=== PATIENT | female | born 1995 | race Caucasian/White ===

== ENCOUNTER 2019-04-24 07:54 | Emergency (ER) | payer BC ==
--- NOTE | 2019-04-24 08:00 | UC ---
UC General HPI - HPI Summary HPI Summary: Urinary frequency and urgency x 2 days. Some lower pelvic discomfort with urination. No fever /chills. No back / flank pain. No GI issues. No rash. - History of Current Complaint Stated Complaint: URINARY ISSUE Time Seen by Provider: 04/24/19 07:59 Hx Obtained From: Patient - Allergy/Home Medications Allergies/Adverse Reactions: Allergies Allergy/AdvReac Type Severity Reaction Status Date / Time No Known Allergies Allergy Verified 04/24/19 08:11 PMH/Surg Hx/FS Hx/Imm Hx Previously Healthy: Yes - Surgical History Surgical History: Yes Surgery Procedure, Year, and Place: Molar extraction 08/2015 - Family History Known Family History: Positive: Non-Contributory - Social History Occupation: Student Alcohol Use: None Substance Use Type: None Smoking Status (MU): Never Smoked Tobacco Have You Smoked in the Last Year: No Review of Systems All Other Systems Reviewed And Are Negative: Yes Constitutional: Positive: Negative Skin: Positive: Negative Eyes: Positive: Negative ENT: Positive: Negative Respiratory: Positive: Negative Cardiovascular: Positive: Negative Gastrointestinal: Positive: Negative Genitourinary: Positive: Other - see hpi Motor: Positive: Negative Neurovascular: Positive: Negative Musculoskeletal: Positive: Arthralgia Neurological: Positive: Negative Psychological: Positive: Negative Is Patient Immunocompromised?: No Physical Exam Triage Information Reviewed: Yes Appearance: Well-Appearing, Well-Nourished Vital Signs Reviewed: Yes Eye Exam: Normal - grossly nad ENT Exam: Normal - grossly nad Neck exam: Normal Respiratory Exam: Normal Respiratory: Positive: Lungs clear, Normal breath sounds, No respiratory distress Cardiovascular Exam: Normal Cardiovascular: Positive: RRR, Brisk Capillary Refill Abdominal Exam: Normal Abdomen Description: Positive: Nontender - no cvat Musculoskeletal Exam: Normal - moves x 4 ext's Neurological Exam: Normal - grossly nonfocal Psychological Exam: Normal - conversing easily and appropriately Course/Dx - Course Course Of Treatment: Reviewed coa / tx plan. Questions as posed answered to the best of my ability. - Diagnoses Provider Diagnosis: UTI (urinary tract infection) Discharge ED - Sign-Out/Discharge Documenting (check all that apply): Patient Departure All imaging exams completed and their final reports reviewed: No Studies - Discharge Plan Condition: Stable Disposition: HOME Patient Education Materials: Urinary Tract Infection in Women (ED), Hematuria ( ED) Referrals: No Primary Care Phys,NOPCP [Primary Care Provider] - [facility] [Outside] Additional Instructions: Hydrate. Use back up method during menstrual cycle(s) during which you are taking antibiotics. Yogurt and / or probiotic every day, and for one week after antibiotic. Seek medical attention for worse or new problems. Trace blood in urine dip - recheck urine by primary care provider - when symptoms gone and not on menstrual cycle. - Billing Disposition and Condition Condition: STABLE Disposition: Home
[2019-04-24 08:11] VITALS: BP 127/86
== END 2019-04-24 09:06 | disposition home or self-care (01) ==
LOC: UCEAST 07:54
DX: N39.0 Urinary tract infection, site not specified (principal)
CPT/HCPCS: 81003; 84702; 87077; 87086; 87186; 99212; G0463

== ENCOUNTER 2019-05-03 16:04 | Emergency (ER) | payer BC ==
[2019-05-03 16:45] VITALS: BP 114/76
--- NOTE | 2019-05-03 17:00 | UC ---
Complaint Female HPI - HPI Summary HPI Summary: was treated one week ago for UTI, finished course augmentin and felt better or 2 days until today when symptoms of painful urination and frequency returned - History Of Current Complaint Chief Complaint: UCGU Stated Complaint: BURNING URINATION Time Seen by Provider: 05/03/19 16:57 Hx Obtained From: Patient Hx Last Menstrual Period: february - takes continuous control ?: No Onset/Duration: Sudden Onset Timing: Intermittent Severity Initially: Mild Severity Currently: Mild Pain Intensity: 3 Aggravating Factor(s): Urination Alleviating Factor(s): Nothing Associated Signs And Symptoms: Positive: Negative. Negative: Fever, Back Pain, Vaginal Bleeding/Discharge, Nausea - Allergies/Home Medications Allergies/Adverse Reactions: Allergies Allergy/AdvReac Type Severity Reaction Status Date / Time No Known Allergies Allergy Verified 05/03/19 16:46 PMH/Surg Hx/FS Hx/Imm Hx Previously Healthy: Yes Neurological History: Migraine - Surgical History Surgical History: Yes Surgery Procedure, Year, and Place: Molar extraction 08/2015 - Family History Known Family History: Positive: Non-Contributory - Social History Occupation: Student Lives: Dormitory/Roommates Alcohol Use: Occasionally Substance Use Type: None Smoking Status (MU): Never Smoked Tobacco Have You Smoked in the Last Year: No Review of Systems All Other Systems Reviewed And Are Negative: Yes Constitutional: Positive: Negative. Negative: Fever, Chills Respiratory: Positive: Negative Cardiovascular: Positive: Negative Gastrointestinal: Negative: Abdominal Pain, Vomiting, Nausea Genitourinary: Positive: Dysuria, Frequency. Negative: Hematuria, Vaginal/ Penile Burning, Vaginal/Penile Itching, Vaginal/Penile Discharge Neurological: Positive: Negative Psychological: Positive: Negative Is Patient Immunocompromised?: No Physical Exam Triage Information Reviewed: Yes Appearance: Well-Appearing, No Pain Distress, Well-Nourished Vital Signs: Initial Vital Signs Temp 98.1 F 05/03/19 16:41 Pulse 54 05/03/19 16:41 Resp 14 05/03/19 16:41 BP 114/76 05/03/19 16:41 Pulse Ox 100 05/03/19 16:41 Vital Signs Reviewed: Yes Respiratory Exam: Normal Respiratory: Positive: Lungs clear Cardiovascular Exam: Normal Cardiovascular: Positive: RRR Abdominal Exam: Normal Abdomen Description: Positive: Nontender. Negative: CVA Tenderness (R), CVA Tenderness (L) Neurological Exam: Normal Psychological Exam: Normal Skin Exam: Normal Complaint Female Dx - Differential Dx/Diagnosis Differential Diagnosis/HQI/PQRI: Sexually Transmitted Disease, Urinary Tract Infection, Other - vaginitis Provider Diagnosis: Dysuria Discharge ED - Sign-Out/Discharge Documenting (check all that apply): Patient Departure All imaging exams completed and their final reports reviewed: No Studies - Discharge Plan Condition: Good Disposition: HOME Prescriptions: Ciprofloxacin TAB* [Cipro 500 MG TAB*] 500 mg PO BID #6 tab Patient Education Materials: Urinary Tract Infection in Women (ED) Referrals: No Primary Care Phys,NOPCP [Primary Care Provider] - Additional Instructions: drink plenty of fluids start cipro antibiotic and use as directed report increasing symptoms - Billing Disposition and Condition Condition: GOOD Disposition: Home
== END 2019-05-03 17:27 | disposition home or self-care (01) ==
LOC: UCEAST 16:04
DX: R30.0 Dysuria (principal)
CPT/HCPCS: 81003; 84702; 99212; G0463

== ENCOUNTER 2019-05-26 10:54 | Emergency (ER) | payer BC ==
--- OUTSIDE RECORDS SUMMARY | 2019-05-26 11:31 | XMS REPORT | Continuity of Care Document ---
:1995 External Reference #:[id number] Author Name Sabino Humphries JR, DO Address [address], [place] [address] Problems Description No Active Problems Social History Type Date Description Comments Sex Unknown Tobacco Use Start: Unknown Never Smoked Cigarettes ETOH Use Currently consumes approx 2 drinks q alcohol month Recreational Drug Use Does Not Use Drugs Tobacco Use Start: Unknown Patient has never smoked Smoking Status Reviewed: 05/07/19 Patient has never smoked Exercise Type/Frequency Exercises regularly Seat Belt/Car Seat Always uses seat belt Allergies, Adverse Reactions, Alerts Description No Known Drug Allergies Medications Active Medications SIG Qnty Indications Ordering Provider Date Lo Loestrin Fe 1 by mouth daily 28tabs Kayla Monzon, 06/21/2017 1mg-10 MD mcg / 10 mcg Tablets Sumatriptan Succinate 1 by mouth x1 Unknown with migraine may 25mg Tablets repeat if no response in 2 hours Medications Administered in Office Medication SIG Qnty Indications Ordering Provider Date PT SCRN Tbco Id as Non User Kayla Monzon MD 07/24/2018 Injection Immunizations Description No Information Available Vital Signs Date Vital Result Comment 05/07/2019 3:09pm BP Systolic 124 mmHg BP Diastolic 80 mmHg Height 64.5 inches 5'4.50" Weight 177.00 lb BMI (Body Mass Index) 29.9 kg/m2 Last Menstrual Period [id number] Parity 0 07/24/2018 8:10am BP Systolic 122 mmHg BP Diastolic 68 mmHg Height 64.5 inches 5'4.50" Weight 209.00 lb BMI (Body Mass Index) 35.3 kg/m2 0 Results Description No Information Available Procedures Description No Information Available Medical Devices Description No Information Available Encounters Type Date Location Provider Dx Diagnosis Office Visit 05/07/2019 [facility] Office Sabino Humphries JR, Z30.09 Encounter for oth 3:30p DO general coun and advice on contraception Assessments Date Code Description Provider 05/07/2019 Z30.09 Encounter for other general counseling and Sabino Humphries JR , DO advice on contraception Plan of Treatment 05/07/2019 - Sabino Humphries JR, DOZ30.09 Encounter for other general counseling and advice on contraceptionComments:Reviewed different IUD's and options for contraception.Reviewed that the amount of hormone in the Mirena and Kyleena IUD' s is very small and typically has a very minimal systemic effect, but I could not guarantee her that she would not have a MARQUEZ after placement.Discussed that the copper IUD is associated with heavier menses. Pt is concerned regarding this because she has had uncomfortable heavy menses in the past and these have been treated successfully with Lo Lo estrin. Explained that she could stay on LoLo estrin while using the Copper IUD, but that her bleeding profile may still change.Multipleinformation pamphlets given.Pt not ready to make a decision today , will call back when ready. Functional Status Description No Information Available Mental Status Description No Information Available Referrals Description No Information Available
--- NOTE | 2019-05-26 11:37 | UC ---
Complaint Female HPI - HPI Summary HPI Summary: Pleasant 24 yo female c/o urinary frequency / urgency since Saturday (today is Saturday). Hx uti last month, early Apr. Placed on Augmentin, but still + sx. Switched to ciprofloxacin, sx alleviated. Current sx are similar to those last month. Has appt with [facility] tomorrow. Other than recently, does not have a long hx of recurrent uti's. No fever / chills. No card pulm sx. + cramping mid and upper abd. Without focal cva pain. No rash. Notes that urine was cloudy but has been hydrating well. - History Of Current Complaint Stated Complaint: FREQUENT URINATION Hx Obtained From: Patient Hx Last Menstrual Period: february - takes continuous control - Allergies/Home Medications Allergies/Adverse Reactions: Allergies Allergy/AdvReac Type Severity Reaction Status Date / Time No Known Allergies Allergy Verified 05/26/19 11:41 PMH/Surg Hx/FS Hx/Imm Hx Previously Healthy: Yes - Surgical History Surgical History: Yes Surgery Procedure, Year, and Place: Molar extraction 08/2015 - Family History Known Family History: Positive: Non-Contributory - Social History Alcohol Use: Occasionally Substance Use Type: None Smoking Status (MU): Never Smoked Tobacco Have You Smoked in the Last Year: No Review of Systems All Other Systems Reviewed And Are Negative: Yes Constitutional: Positive: Negative - see hpi Skin: Positive: Negative Eyes: Positive: Negative ENT: Positive: Negative Respiratory: Positive: Negative Cardiovascular: Positive: Negative Gastrointestinal: Positive: Other - see hpi Genitourinary: Positive: Other - see hpi Motor: Positive: Negative Neurovascular: Positive: Negative Musculoskeletal: Positive: Negative Neurological: Positive: Negative Psychological: Positive: Negative Is Patient Immunocompromised?: No Physical Exam Triage Information Reviewed: Yes Appearance: Well-Appearing, Well-Nourished Vital Signs Reviewed: Yes Eye Exam: Normal - grossly nonfocal ENT Exam: Normal Neck exam: Normal - no c/o's Respiratory Exam: Normal Respiratory: Positive: Chest non-tender, Lungs clear, Normal breath sounds, No respiratory distress, No accessory muscle use Cardiovascular Exam: Normal Cardiovascular: Positive: RRR, No Murmur, Pulses Normal, Brisk Capillary Refill Abdominal Exam: Other - + subjective cramping sensation mid abd. o/w benign. No cvat. Musculoskeletal Exam: Normal - nad Neurological Exam: Normal - grossly nonfocal Psychological Exam: Normal - nad Skin Exam: Normal - no visible or reported rash Complaint Female Dx - Course Course Of Treatment: Reviewed urine cx results from 04/24/19, + E. coli with mult sens. Encourage probiotic. Does eat yogurt, encouraged daily if not taking probiotic. Will f/u [facility] as planned. Rx ciprofloxacin, pyridium. Questions as posed answered to the best of my ability. - Differential Dx/Diagnosis Provider Diagnosis: Cystitis Discharge ED - Sign-Out/Discharge Documenting (check all that apply): Patient Departure All imaging exams completed and their final reports reviewed: No Studies - Discharge Plan Condition: Stable Disposition: HOME Patient Education Materials: Urinary Tract Infection in Women (ED) Referrals: No Primary Care Phys,NOPCP [Primary Care Provider] - [facility] [Outside] Additional Instructions: Follow up with [facility] as planned. Hydrate. Probiotic. Urine culture in the lab. Seek medical attention for worse or new issues. - Billing Disposition and Condition Condition: STABLE Disposition: Home
[2019-05-26 11:41] VITALS: BP 126/75
== END 2019-05-26 12:30 | disposition home or self-care (01) ==
LOC: UCEAST 10:54
DX: N30.90 Cystitis, unspecified without hematuria (principal)
CPT/HCPCS: 81003; 84702; 87086; 99212; G0463

== ENCOUNTER 2019-06-06 09:40 | Emergency (ER) | payer BC ==
--- OUTSIDE RECORDS SUMMARY | 2019-06-06 09:43 | XMS REPORT | Continuity of Care Document ---
:1995 External Reference #:[id number] Author Name Frank Holland M.D. (transmitted by agent of provider Lyndsay Valdovinos) Address [address], [place] [address] Problems Active Problems Provider Date Migraine Frank Holland M.D. Onset: 03/26/2017 Social History Type Date Description Comments Sex Unknown ETOH Use Occasionally consumes alcohol Tobacco Use Start: Unknown Patient has never smoked Smoking Status Reviewed: 06/02/19 Patient has never smoked Allergies, Adverse Reactions, Alerts Description No Known Drug Allergies Medications Active Medications SIG Qnty Indications Ordering Provider Date Sumatriptan Succinate 1 tab twice a day 9tabs Frank Holland, 2018 max 2 days a week M.D. 100mg Tablets Loestrin 1.5/30 (21) as directed on Unknown the pack 1.5-30mg-mcg Tablets Aleve 1-2 by mouth 30caps Frank Holland, 220mg Capsules twice a day as M.D. needed Culturelle 1 by mouth Unknown Capsules everyday Immunizations Description No Information Available Vital Signs Date Vital Result Comment 06/02/2019 3:29pm Height 65 inches 5'5" Weight 175.00 lb Heart Rate 70 /min BP Systolic 130 mmHg BP Diastolic 80 mmHg BMI (Body Mass Index) 29.1 kg/m2 05/28/2018 3:20pm Height 65 inches 5'5" Weight 200.00 lb Heart Rate 72 /min BP Systolic Sitting 132 mmHg BP Diastolic Sitting 86 mmHg Respiratory Rate 16 /min BMI (Body Mass Index) 33.3 kg/m2 Results Description No Information Available Procedures Description No Information Available Medical Devices Description No Information Available Encounters Description No Information Available Assessments Date Code Description Provider 06/02/2019 G43.019 Migraine without aura, intractable, without Frank Holland M.D. status migrainosus Plan of Treatment Future Appointment(s):05/31/2020 3:45 pm - Frank Holland M.D. at [facility]06/02/2019 - Frank Holland M.D.G43.019 Migraine without aura, intractable, without status migrainosusFollow up:1 YEAR Functional Status Description No Information Available Mental Status Description No Information Available Referrals Description No Information Available
[2019-06-06 09:57] VITALS: BP 118/79
--- NOTE | 2019-06-06 10:24 | UC ---
Complaint Female HPI - HPI Summary HPI Summary: was treated 1 month ago for UTI and did well until 2 days after treatment when she experienced dysuria and frequency again, This time the urine culture was negative. She presents today for 2 day history urinary frequency, no fever, chills or back pain - History Of Current Complaint Chief Complaint: UCGU Stated Complaint: UTI Time Seen by Provider: 06/06/19 10:06 Hx Obtained From: Patient Hx Last Menstrual Period: bcp ?: No Onset/Duration: Gradual Onset Timing: Constant Severity Initially: Mild Severity Currently: Mild Pain Intensity: 2 Character: Burning Aggravating Factor(s): Urination Associated Signs And Symptoms: Positive: Negative. Negative: Fever, Back Pain, Vaginal Bleeding/Discharge, Nausea - Allergies/Home Medications Allergies/Adverse Reactions: Allergies Allergy/AdvReac Type Severity Reaction Status Date / Time No Known Allergies Allergy Verified 06/06/19 09:57 PMH/Surg Hx/FS Hx/Imm Hx Previously Healthy: Yes Neurological History: Migraine - Surgical History Surgical History: Yes Surgery Procedure, Year, and Place: Molar extraction 08/2015 - Family History Known Family History: Positive: Non-Contributory - Social History Occupation: Student Alcohol Use: Occasionally Substance Use Type: None Smoking Status (MU): Never Smoked Tobacco Have You Smoked in the Last Year: No Review of Systems All Other Systems Reviewed And Are Negative: Yes Constitutional: Positive: Negative Skin: Positive: Negative Respiratory: Positive: Negative Cardiovascular: Positive: Negative Gastrointestinal: Negative: Abdominal Pain, Nausea Genitourinary: Positive: Dysuria, Frequency Neurological: Positive: Negative Psychological: Positive: Negative Is Patient Immunocompromised?: No Physical Exam Triage Information Reviewed: Yes Appearance: Well-Appearing, No Pain Distress, Well-Nourished Vital Signs: Initial Vital Signs Temp 97.4 F 06/06/19 09:53 Pulse 84 06/06/19 09:53 Resp 18 06/06/19 09:53 BP 118/79 06/06/19 09:53 Pulse Ox 100 06/06/19 09:53 Vital Signs Reviewed: Yes Respiratory Exam: Normal Respiratory: Positive: Lungs clear Cardiovascular Exam: Normal Cardiovascular: Positive: RRR Abdominal Exam: Normal Neurological Exam: Normal Psychological Exam: Normal Skin Exam: Normal Complaint Female Dx - Differential Dx/Diagnosis Differential Diagnosis/HQI/PQRI: Sexually Transmitted Disease, Ureteral Stone, Urinary Tract Infection Provider Diagnosis: Dysuria Discharge ED - Sign-Out/Discharge Documenting (check all that apply): Patient Departure All imaging exams completed and their final reports reviewed: No Studies - Discharge Plan Condition: Good Disposition: HOME Patient Education Materials: Dysuria (ED) Referrals: No Primary Care Phys,NOPCP [Primary Care Provider] - (follow-up with [facility] INSURANCE CLERK as scheduled on Saturday) Additional Instructions: drink plenty of fluids follow-up with HOSPITAL INSURANCE CLERK on Saturday as schedule - Billing Disposition and Condition Condition: GOOD Disposition: Home - Attestation Statements Provider Attestation: Per institutional requirements, I have reviewed the chart, however, I was not consulted specifically or made aware of this patient by the midlevel provider. I did not personally evaluate, interact with , or disposition this patient.
== END 2019-06-06 10:35 | disposition home or self-care (01) ==
LOC: UCEAST 09:40
DX: R30.0 Dysuria (principal); R35.0 Frequency of micturition; Z87.440 Personal history of urinary (tract) infections
CPT/HCPCS: 81003; 99211; G0463